=== PATIENT | female | born 1980 | race Two or more races ===

== ENCOUNTER 2019-02-27 03:35 | Emergency (ER) | payer OTHER ==
[~2019-02-27] VITALS: Ht 160 cm; Wt 95.3 kg
[2019-02-27 03:38] VITALS: BP 92/42
== END 2019-02-27 04:34 ==
LOC: ER 03:38
DX: Z02.89 Encounter for other administrative examinations (principal); Z88.2 Allergy status to sulfonamides; Z91.040 Latex allergy status